=== PATIENT | male | born 1965 | race Two or more races ===

== ENCOUNTER 2020-05-01 08:22 | Emergency (ER) | payer OTHER ==
[~2020-05-01] VITALS: Ht 175.3 cm; Wt 90.9 kg
[~2020-05-01 08:22] MED LIST: AMOX-429 PO; ASPI81TA87 PO; BACL10TA PO; CETI10TA58 PO; CYAN-53 PO; FINA5TAB41 PO; GLIM2 PO; LISI-618 PO; METF-960 PO; NAPR-1175 PO; PROM25TA7 PO; SIMV-43 PO; SUMA100T16 PO; TAMS-13 PO; VENL-68 PO
[2020-05-01] MEDS ORDERED: IBUPROFEN 600 MG TABLET PO ONE (09:00)
[2020-05-01 09:33] VITALS: BP 139/88
== END 2020-05-01 09:46 | disposition home or self-care (01) ==
LOC: EMS 08:23
DX: R10.9 Unspecified abdominal pain (principal); R05 Cough; E11.9 Type 2 diabetes mellitus without complications; I10 Essential (primary) hypertension; Z79.899 Other long term (current) drug therapy